=== PATIENT | female | born 1955 | race Caucasian/White ===

== ENCOUNTER 2018-10-23 09:58 | Emergency (ER) | payer OTHER ==
[~2018-10-23] VITALS: Ht 160 cm; Wt 61.2 kg
[~2018-10-23 09:58] MED LIST: CLARINEX-D 11 BOTTLE PO; DOLOGESIC CAPLE1 TAB PO; KLONOPIN0.5 MG/TAB PO; LEXAPRO5 MG PO; PREVACID30 MG PO; SINGULAIR 10MG10 MG PO
== END 2018-10-23 12:30 | disposition home or self-care (01) ==
LOC: ER 09:58
DX: M54.2 Cervicalgia (principal)